=== PATIENT | male | born 2000 | race Caucasian/White ===

== ENCOUNTER 2022-02-02 16:37 | Emergency (ER) | payer OTHER, SELFPAY ==
[2022-02-02 16:48] VITALS: BP 133/85; PULSE 58; RESP 18; TEMP 36.6; O2SAT 100
--- NOTE | 2022-02-02 17:18 | ED.URI ---
HPI - URI/Sore Throat General Chief Complaint: Upper Respiratory Infection Stated Complaint: Sore Throat Time Seen by Provider: 02/02/22 17:10 History of Present Illness HPI Narrative: Michael Silva is a 21-year-old male with no PMH who comes to [facility] with 1 week of sore throat that is worsened. At times he cannot eat because it hurts too much but he states the pain sometimes wavers and gets a little better before it worsens again. He is not aware of having a fever. No nausea vomiting diarrhea. He was on a float trip with a number of friends over the weekend and had difficulty swallowing over the weekend He has not gotten the COVID-vaccine Related Data Allergies Allergy/AdvReac Type Severity Reaction Status Date / Time No Known Allergies Allergy Verified 02/02/22 17:04 Review of Systems Review of Systems: CONSTITUTIONAL: Denies fever, chills, sweats. EYES: Denies visual changes, redness, discharge. ENT: Denies rhinorrhea, has congestion, has sore throat, otalgia. Muffling of voice CARDIOVASCULAR: Denies chest pain, palpitations, edema. RESPIRATORY: Denies dyspnea, wheezing, cough GASTROINTESTINAL: Denies abdominal pain, nausea, vomiting, diarrhea. GENITOURINARY: Denies dysuria, hematuria, abnormal discharge SKIN: Denies rash or itching. NEUROLOGIC: Denies numbness, or focal weakness. PSYCHIATRIC: Denies anxiety or depression. [facility] Social History Social History (Updated 02/02/22 @ 17:19 by Madina Rondon CNP) Smoking status: Current every day smoker Tobacco type: e-cigarettes/vaping Alcohol intake: current Comments At time of signature, I agree with nursing past medical, surgical, social and family history. There is no relevant family history pertinent to the presenting complaint. Exam Narrative: GENERAL: This is a well-nourished, well-developed patient, in mild distress. HEAD: normocephalic, atraumatic. EYES:. Sclera clear/white. Vision is grossly intact. EARS: External ears normal, auditory canals clear and without drainage, TMs normal without perforation. Hearing grossly intact. NOSE: External nose normal without nasal discharge, nares without redness, has rhinorrhea. THROAT: Mucous membranes moist, posterior pharynx erythema with tonsillar edema NECK: Neck supple, non-tender CARDIOVASCULAR: Regular rate and rhythm without murmurs, gallops, or rubs. RESPIRATORY: Clear to auscultation. Breath sounds equal bilaterally. No wheezes, rales, or rhonchi. GASTROINTESTINAL: Not done SKIN: warm, intact with no suspicious lesions or rash, good texture and turgor. NEURO: awake, alert, and oriented to person, place and time. There were no obvious focal neurologic abnormalities. Steady gait EXTREMITIES: Normal range of motion. BACK: Nontender without deformity Course Course Emergency Course: Patient comes with 1 week of sore throat and difficulty swallowing with no fever no nausea vomiting or diarrhea Strep test is negative COVID test is positive Patient placed in isolation for 10 days plus masking-discussed hydration and treatment of self at home with COVID and avoiding contact with that and the other individuals; should notify people on full trip this weekend but he has COVID Level of Care: Express Care Visit Vital Signs Vital signs: Vital Signs Temperature 97.8 F 02/02/22 16:48 Pulse Rate 58 L 02/02/22 16:48 Respiratory Rate 18 02/02/22 16:48 Blood Pressure 133/85 02/02/22 16:48 Pulse Oximetry 100 02/02/22 16:48 Oxygen Delivery Room Air 02/02/22 16:48 Temperature 97.8 F 02/02/22 16:48 Pulse Rate 58 L 02/02/22 16:48 Respiratory Rate 18 02/02/22 16:48 Blood Pressure 133/85 02/02/22 16:48 Pulse Oximetry 100 02/02/22 16:48 Oxygen Delivery Room Air 02/02/22 16:48 MDM - URI/Sore Throat Differential Diagnosis Differential diagnosis: Likely upper respiratory infection, sinusitis, viral infection, bronchitis and other Lab Data Labs: Lab Results
== END 2022-02-02 17:35 | disposition home or self-care (01) ==
PROVIDERS: Emergency Provider Nurse Practitioner
DX: U07.1 COVID-19 (principal); F17.290 Nicotine dependence, other tobacco product, uncomplicated
CPT/HCPCS: 87081; 87426; 87880; 99213; C9803; G0463